=== PATIENT | male | born 1935 | race Two or more races ===

== ENCOUNTER 2018-10-10 03:51 | Inpatient (IN) | payer SELFPAY ==
[~2018-10-10] VITALS: Ht 157.5 cm; Wt 59.1 kg
[2018-10-10 04:36] LABS: BASOPHILS % (AUTO) 0.7 % (0.0-2.0); EOSINOPHILS % (AUTO) 0.8 % (1.0-6.0); HEMOGLOBIN 13.3 g/dL (13.5-17.5); LYMPHOCYTES # (AUTO) 0.6 K/uL (1.0-4.8); LYMPHOCYTES % (AUTO) 11.2 % (22.0-44.0); MEAN CORPUSCULAR HGB CONC 32.6 G/dL (31.0-37.0); MEAN CORPUSCULAR VOLUME 98 fL (80-100); MONOCYTES # (AUTO) 0.2 K/uL (0.1-1.0); MONOCYTES % (AUTO) 4.2 % (2.0-9.0); NEUTROPHILS # (AUTO) 4.4 K/uL (1.8-7.7); NEUTROPHILS % (AUTO) 83.1 % (40.0-70.0); PLATELET COUNT (AUTO) 157 K/uL (150-450); RED BLOOD CELL COUNT(AUTO) 4.17 MIL/uL (4.50-5.90); RED CELL DISTRIBUTION WIDTH 13.5 % (11.5-14.5)
[2018-10-10 04:46] LABS: CREATININE 1.8 mg/dL (0.60-1.30)
[2018-10-10 04:52] LABS: ALBUMIN 3.9 g/dL (3.4-5.0); BILIRUBIN,TOTAL 0.5 mg/dL (0.1-1.0); TOTAL PROTEIN, SERUM 7.5 g/dL (6.4-8.2)
[2018-10-10 04:54] LABS: TROPONIN I 0.02 ng/mL (0.00-0.05)
[2018-10-10 04:55] LABS: APPEARANCE,URINE CLEAR (CLEAR); BILIRUBIN,URINE NEGATIVE (NEGATIVE); GLUCOSE, URINE (UA) NEGATIVE (NEGATIVE); KETONES,URINE NEGATIVE (NEGATIVE); LEUKOCYTE ESTERASE ,URINE NEGATIVE (NEGATIVE); NITRATE,URINE NEGATIVE (NEGATIVE); OCCULT BLOOD,URINE SMALL (NEGATIVE); PROTEIN,URINE POS 1+ (NEGATIVE); UROBILINOGEN,URINE 0.2 mg/dL (<=1.0)
[2018-10-10 04:58] LABS: AMPHET/METH SCREEN,URINE NEGATIVE (NEGATIVE); BARBITURATE SCREEN, URINE NEGATIVE (NEGATIVE); BENZODIAZEPINES SCREEN,URINE NEGATIVE (NEGATIVE); CANNABINOID SCREEN,URINE NEGATIVE (NEGATIVE); COCAINE SCREEN,URINE NEGATIVE (NEGATIVE); METHADONE SCREEN, URINE NEGATIVE (NEGATIVE); OPIATE SCREEN,URINE NEGATIVE (NEGATIVE)
[2018-10-10 04:59] LABS: PHENCYCLIDINE SCREEN,URINE NEGATIVE (NEGATIVE)
[2018-10-10 05:00] LABS: BACTERIA,URINE None Seen /HPF (None Seen); RBC,URINE 0-2 /HPF (0-2); SQUAMOUS EPITHELIAL CELL,UR Rare /LPF (None Seen); WBC,URINE 0-2 /HPF (0-5)
[2018-10-10] MEDS ORDERED: 0.9% SODIUM CHLORIDE 10 ML SYRINGE IVP PRN (06:00)
[2018-10-10] MEDS ORDERED: ONDANSETRON HCL 4 MG/2 ML VIAL IVP PRN (06:00)
[2018-10-10] MEDS ORDERED: ACETAMINOPHEN 325 MG TABLET PO PRN ×2 (06:00→08:45)
[2018-10-10] MEDS ORDERED: LevETIRAcetam 1,000 MG in DEXTROSE 5%-WATER 100 ML IV ONE (06:00)
[2018-10-10 08:35] VITALS: BP 116/57
[2018-10-10] MEDS ORDERED: DEXTROSE 5%-0.45% SODIUM CHL 1,000 ML IV ONE (08:45)
[2018-10-10] MEDS ORDERED: LORazepam 2 MG/ML VIAL IVP PRN (08:45)
[2018-10-10] MEDS ORDERED: MAGNESIUM HYDROXIDE SUSPENSION 30 ML UDCUP PO PRN (08:45)
[2018-10-10 11:20] VITALS: BP 130/60
[2018-10-10] MEDS: ASPIRIN 81 MG CHEWABLE TABLET PO SCH (11:20)
[2018-10-10] MEDS: DOCUSATE SODIUM 100 MG CAPSULE PO SCH ×2 (11:20→20:04)
[2018-10-10] MEDS: FAMOTIDINE 20 MG TABLET PO SCH (11:20)
[2018-10-10] MEDS: LevETIRAcetam 500 MG TABLET PO SCH ×2 (11:20→20:04)
[2018-10-10] MEDS: HEPARIN SODIUM,PORCINE 5,000 UNITS/ML VIAL SQ SCH ×2 (15:06→23:17)
[2018-10-10 15:28] VITALS: BP 115/68
[2018-10-10 19:35] VITALS: BP 128/72
[2018-10-10 23:15] VITALS: BP 120/68
[2018-10-11 07:38] VITALS: BP 126/70
[2018-10-11] MEDS: ASPIRIN 81 MG CHEWABLE TABLET PO SCH ×2 (07:50→10:15)
[2018-10-11] MEDS: DOCUSATE SODIUM 100 MG CAPSULE PO SCH ×2 (07:50→19:47)
[2018-10-11] MEDS: HEPARIN SODIUM,PORCINE 5,000 UNITS/ML VIAL SQ SCH ×3 (07:51→23:24)
[2018-10-11] MEDS: LevETIRAcetam 500 MG TABLET PO SCH ×2 (07:51→19:47)
[2018-10-11] MEDS: FAMOTIDINE 20 MG TABLET PO SCH (07:51)
[2018-10-11] MEDS ORDERED: SODIUM CHLORIDE 0.9% 1,000 ML IV ONE (09:45)
[2018-10-11 11:12] VITALS: BP 147/58
[2018-10-11 15:35] VITALS: BP 143/63
[2018-10-11 19:15] VITALS: BP 141/72
[2018-10-11 23:42] VITALS: BP 122/55
[2018-10-12 03:30] VITALS: BP 126/60
[2018-10-12 05:55] LABS: CALCIUM, TOTAL 8.8 mg/dL (8.8-10.5); CREATININE 1.33 mg/dL (0.60-1.30); POTASSIUM 4.6 mmol/L (3.5-5.1)
[2018-10-12 07:38] VITALS: BP 141/62
[2018-10-12] MEDS: HEPARIN SODIUM,PORCINE 5,000 UNITS/ML VIAL SQ SCH (08:12)
[2018-10-12] MEDS: ASPIRIN 81 MG CHEWABLE TABLET PO SCH ×2 (08:13→09:00)
[2018-10-12] MEDS: DOCUSATE SODIUM 100 MG CAPSULE PO SCH (08:13)
[2018-10-12] MEDS: FAMOTIDINE 20 MG TABLET PO SCH (08:13)
[2018-10-12] MEDS: LevETIRAcetam 500 MG TABLET PO SCH (08:13)
[2018-10-12] MEDS ORDERED: ASA 81 PO (10:58)
[2018-10-12] MEDS ORDERED: AMLO5TAB9 PO (10:58)
== END 2018-10-12 11:15 | disposition home or self-care (01) | DRG 101 ==
LOC: EMS 03:54 → 6N 05:49
PROVIDERS: ADMIT Internal Medicine; ATTEND Internal Medicine
DX: G40.909 Epilepsy, unspecified, not intractable, without status epilepticus (principal); N17.9 Acute kidney failure, unspecified; F02.80 Dementia in other diseases classified elsewhere, unspecified severity, without behavioral disturbance, psychotic disturbance, mood disturbance, and anxiety; G30.9 Alzheimer's disease, unspecified; I10 Essential (primary) hypertension; R00.1 Bradycardia, unspecified
CPT/HCPCS: 70450; 70551; 93005; 95816; 96361; 96365; 97161; J0712; J1644; J7030; J7060